=== PATIENT | male | born 1965 | race Asian ===

== ENCOUNTER 2017-09-14 23:11 | Emergency (ER) | payer OTHER ==
[~2017-09-14] VITALS: Ht 165.1 cm; Wt 59.1 kg
[2017-09-15] MEDS ORDERED: BUPIVACAINE HCL/PF 0.25% 10 ML VIAL INJ ONE (01:00)
[2017-09-15] MEDS ORDERED: BACITRACIN 0.9 GM PACKET OINTMENT TP ONE (01:00)
[2017-09-15 02:15] VITALS: BP 138/81
== END 2017-09-15 02:15 | disposition home or self-care (01) ==
LOC: EMS 23:13
DX: S01.21XA Laceration without foreign body of nose, initial encounter (principal); F17.210 Nicotine dependence, cigarettes, uncomplicated; W54.0XXA Bitten by dog, initial encounter; Y93.89 Activity, other specified; Y92.89 Other specified places as the place of occurrence of the external cause; Y99.8 Other external cause status
CPT/HCPCS: 12013; 99283; 99406; J3490